=== PATIENT | female | born 1945 | race Caucasian/White ===

== ENCOUNTER 2019-12-16 10:53 | Emergency (ER) | payer OTHER ==
[~2019-12-16] VITALS: Ht 167.6 cm; Wt 51.8 kg
[2019-12-16] MEDS ORDERED: LIDOcaine 1% 30ml preserv. free vial IJ STA (11:27)
[2019-12-16] MEDS ORDERED: cyclobenzaprine 10mg tablet PO ONE (11:30)
[2019-12-16] MEDS ORDERED: HYDROcodone/acetaminophen 5mg/325mg tablet PO ONE (12:20)
[2019-12-16 12:24] VITALS: BP 149/104
[2019-12-16] MEDS ORDERED: HYDR-3965 PO (12:35)
== END 2019-12-16 12:47 | disposition home or self-care (01) ==
LOC: ER 10:53
DX: S16.1XXA Strain of muscle, fascia and tendon at neck level, initial encounter (principal); I10 Essential (primary) hypertension; Z98.890 Other specified postprocedural states; Z79.899 Other long term (current) drug therapy; X58.XXXA Exposure to other specified factors, initial encounter; Y93.89 Activity, other specified; Y92.89 Other specified places as the place of occurrence of the external cause; Y99.8 Other external cause status
CPT/HCPCS: 20552; 99284

== ENCOUNTER 2020-05-08 10:53 | Emergency (ER) | payer MEDICARE, MEDICAID ==
[~2020-05-08] VITALS: Ht 167.6 cm; Wt 52.0 kg
[2020-05-08 10:56] VITALS: BP 175/77
[2020-05-08] MEDS ORDERED: HYDROcodone/acetaminophen 10/325mg tab PO ONE (12:45)
[2020-05-08] MEDS ORDERED: ketorolac trometh inj. 60 MG/2 ML VIAL IM ONE (12:45)
[2020-05-08] MEDS ORDERED: ketorolac tromethamine 15mg/ml inj. IM ONE (12:45)
[2020-05-08] MEDS ORDERED: HYDR-4383 PO (12:51)
== END 2020-05-08 13:21 | disposition home or self-care (01) ==
LOC: ER 10:53
DX: M54.2 Cervicalgia (principal); I10 Essential (primary) hypertension; G89.29 Other chronic pain; Z98.890 Other specified postprocedural states; Z79.899 Other long term (current) drug therapy
CPT/HCPCS: 96372; 99283; J1885